=== PATIENT | female | born 1975 | race Caucasian/White ===

== ENCOUNTER 2017-09-28 12:10 | Emergency (ER) | payer OTHER ==
[~2017-09-28] VITALS: Ht 175.3 cm; Wt 53.6 kg
[2017-09-28 12:15] VITALS: TEMP 97
[2017-09-28 12:32] LABS: BASO % 0.6 % (0.0-2.0); EOS # 0.2 (0.0-0.7); EOS % 2.4 % (0-4.0); GRAN # 3.1 (1.4-6.5); GRAN % 45.5 % (42.2-75.2); HEMOGLOBIN 13.2 g/dl (12.5-16.0); LYMPH # 2.9 (1.2-3.4); LYMPH % 42.4 % (20.0-51.0); MEAN CELL VOLUME 90 fl (80.0-100.0); MEAN CORPUSCULAR HEMOGLOBIN 30 pg (27.0-31.0); MEAN CORPUSCULAR HGB CONC 34 g/dl (33.0-37.0); MEAN PLATELET VOLUME 10.3 fl (7.4-10.4); MONO # 0.6 (0.1-0.6); PLATELET COUNT 257 K/mm3 (130-400); RED BLOOD COUNT 4.34 M/mm3 (4.10-5.30); REDCELL DISTRIBUTION WIDTH-CV 12.2 % (11.5-14.5)
[2017-09-28 12:50] LABS: ALANINE AMINOTRANSFERASE 24 U/L (9-52); ALBUMIN 4.2 gm/dL (3.5-5.0); ALKALINE PHOSPHATASE 56 U/L (50-136); ANION GAP 11 mmol/L (7-16); AST,SGOT 26 U/L (15-37); BILIRUBIN,TOTAL 2.1 mg/dL (0.0-1.0); BLOOD UREA NITROGEN 15 mg/dL (7-17); CALCIUM 9.1 mg/dL (8.4-10.2); CARBON DIOXIDE 25 mmol/L (22-30); CHLORIDE 105 mmol/L (98-107); CREATININE, serum 0.68 mg/dL (0.52-1.25); GLUCOSE 124 mg/dL (74-106); LIPASE 173 U/L (23-300); POTASSIUM 3.5 mmol/L (3.4-5.0); SODIUM 141 mmol/L (137-145); TOTAL PROTEIN 7.5 gm/dL (6.4-8.2)
[2017-09-28 12:53] LABS: C-REACTIVE PROTEIN < 0.5 mg/dL (0.0-0.9)
[2017-09-28 13:16] LABS: COLLECTION METHOD CLEAN CATCH
[2017-09-28 13:32] LABS: MUCOUS Present /lpf; PH 6 (5-8); URINE APPEARANCE Clear; URINE BACTERIA Rare /hpf; URINE BILIRUBIN Negative (NEGATIVE); URINE BLOOD 1+ (NEGATIVE); URINE COLOR Yellow; URINE GLUCOSE Negative (NEGATIVE); URINE KETONE Negative (NEGATIVE); URINE LEUKOCYTE ESTERASE Negative (NEGATIVE); URINE NITRATE Negative (NEGATIVE); URINE PROTEIN(semi-quant) Negative (NEGATIVE); URINE UROBILINOGEN Negative (NEGATIVE)
[2017-09-28 14:01] VITALS: BP 135/89
[2017-09-28] MEDS ORDERED: NORCO 325 MG-51 TAB PO (15:34)
[2017-09-28 15:42] VITALS: PULSE 63
== END 2017-09-28 15:42 | disposition home or self-care (01) ==
LOC: COL.ER 12:10
PROVIDERS: Family Medicine
DX: N20.1 Calculus of ureter (principal)
CPT/HCPCS: J1170; J1885; J2270; J2405; J2550; J7030; Q9967

== ENCOUNTER → 2018-01-02 | Outpatient (CLI) | payer OTHER ==
[~2018-01-02] MED LIST: NORCO 325 MG-51 TAB PO
== END ==
LOC: COL.RAD 13:45
DX: N20.0 Calculus of kidney (principal); R31.21 Asymptomatic microscopic hematuria
CPT/HCPCS: Q9967